=== PATIENT | female | born 2000 | race Two or more races ===

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

== ENCOUNTER 2021-05-07 13:54 | Emergency (ER) | payer OTHER ==
[~2021-05-07] VITALS: Ht 165.1 cm; Wt 75.5 kg
[2021-05-07 13:55] VITALS: BP 128/77
[2021-05-07] MEDS ORDERED: IBUPROFEN 600 MG TABLET. PO ONE (14:45)
[2021-05-07] MEDS ORDERED: CYCL-331 PO (14:59)
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
== END 2021-05-07 15:09 | disposition home or self-care (01) ==
LOC: ER 13:54
DX: M54.2 Cervicalgia (principal); R51.9 Headache, unspecified; V89.2XXA Person injured in unspecified motor-vehicle accident, traffic, initial encounter; Y93.I9 Activity, other involving external motion; Y92.89 Other specified places as the place of occurrence of the external cause; Y99.8 Other external cause status
CPT/HCPCS: 99283

== ENCOUNTER 2021-07-26 23:13 | Emergency (ER) | payer OTHER ==
[~2021-07-26] VITALS: Ht 160 cm; Wt 77.0 kg
[~2021-07-26 23:13] MED LIST: CYCL-331 PO
[2021-07-26] MEDS ORDERED: IPRATRPIUM/ALBUTEROL 0.5/2.5MG 3 ML NEBU. NEB ONE (23:45)
[2021-07-26] MEDS ORDERED: DEXAMETHASONE 4 MG TABLET PO ONE (23:45)
--- NOTE | 2021-07-26 23:51 | PHYS DOC ---
Past History Past Medical History: No Pertinent History Past Surgical History: No Surgical History Alcohol Use: Rarely Drug Use: None Adult General Chief Complaint Chief Complaint: SHORTNESS OF BREATH HPI HPI Patient is a 21-year-old female with a past medical history significant for asthma who presents with asthma exacerbation. States her asthma has been controlled for years but got a new cat a few days ago and noticed since then she has had some runny nose, itchy eyes and then started wheezing earlier today. States she has not had an exacerbation so long since she does not have any albuterol at home. Denies any recent travels, traumas, fevers, sore throat throat, pain or trouble swallowing, abdominal pain, nausea, vomiting, diarrhea. Review of Systems Review of Systems Constitutional: Denies fever or chills [] Eyes: Denies change in visual acuity, redness, or eye pain [] HENT: Denies nasal congestion or sore throat [] Respiratory: Denies cough or shortness of breath [] Cardiovascular: No additional information not addressed in HPI [] GI: Denies abdominal pain, nausea, vomiting, bloody stools or diarrhea [] : Denies dysuria or hematuria [] Musculoskeletal: Denies back pain or joint pain [] Integument: Denies rash or skin lesions [] Neurologic: Denies headache, focal weakness or sensory changes [] Endocrine: Denies polyuria or polydipsia [] All other systems were reviewed and found to be within normal limits, except as documented in this note. Current Medications Current Medications Current Medications Medications (Trade) Dose Ordered Sig/Ismael Start Time Stop Time Status Last Admin Dose Admin Albuterol/ Ipratropium (Duoneb) 3 ml 1X ONCE 07/26/21 23:45 07/26/21 23:46 Dexamethasone (Decadron) 10 mg 1X ONCE 07/26/21 23:45 07/26/21 23:46 Fentanyl Citrate (Fentanyl 2ml Vial) 25 mcg 1X ONCE 07/26/21 23:45 07/26/21 23:46 Allergies Allergies Allergies Coded Allergies Type Severity Reaction Last Updated Verified No Known Drug Allergies 05/07/21 No Physical Exam Physical Exam Constitutional: Well developed, well nourished, no acute distress, non-toxic appearance. [] HENT: Normocephalic, atraumatic, bilateral external ears normal, oropharynx moist, no oral exudates, nose normal. [] Eyes: conjunctiva normal, no discharge. [] Neck: Normal range of motion, no tenderness, supple, no stridor. [] Cardiovascular:Heart rate regular rhythm, no murmur [] Lungs & Thorax: Bilateral global, end expiratory wheeze with no rhonchi Abdomen: Bowel sounds normal, soft, no tenderness, no masses, no pulsatile claudette s. [] Skin: Warm, dry, no erythema, no rash. [] Extremities: No tenderness, ROM intact, no edema. [] Neurologic: Alert and oriented X 3, no focal deficits noted. [] Psychologic: Affect normal, judgement normal, mood normal. [] Current Patient Data Vital Signs Vital Signs Date Time Temp Pulse Resp B/P (MAP) Pulse Ox O2 Delivery O2 Flow Rate FiO2 07/26/21 23:23 98.3 87 20 141/88 98 Room Air EKG EKG [] Radiology/Procedures Radiology/Procedures [] Heart Score C/O Chest Pain: N/A Risk Factors: Risk Factors: DM, Current or recent (<one month) smoker, HTN, HLP, family history of CAD, obesity. Risk Scores: Risk Factors: DM, Current or recent (<one month) smoker, HTN, HLP, family history of CAD, obesity. Course & Med Decision Making Course & Med Decision Making Patient is a 21-year-old female who presents with asthma exacerbation. Vital signs not concerning. Physical exam noted above. Given breathing treatment, steroids and albuterol inhaler with spacer and educated on appropriate use. Discussed all findings with patient. Advised to follow-up on Wednesday with primary care physician. Gave return precautions to the ED. Patient grateful, verbalized understanding and agreed with plan of discharge. [] Dragon Disclaimer Dragon Disclaimer This electronic medical record was generated, in whole or in part, using a voice recognition dictation system. Departure Departure: Impression: Primary Impression: Asthma exacerbation Disposition: HOME / SELF CARE / HOMELESS Condition: GOOD Referrals: SELAM LESLIE DO (PCP) Patient Instructions: Asthma Attacks, Prevention, Asthma, Adult Additional Instructions: Thank you for coming into the emergency department tonight and allowing us to take care of you. Please read the attached information above to go back over some of the things we discussed. Please use your albuterol inhaler as demonstrated and as needed. Please call your primary care physician on Wednesday to update on ED visit and set up a follow-up as soon as you can to discuss asthma management. Please consider recent exposures to pets, new soaps and such as we discussed to help prevent further exacerbations. Please come back to the ED with new or concerning symptoms as discussed. MARYJANE HAMILTON MD Jul 26, 2021 23:51
[2021-07-27] MEDS ORDERED: ALBUTEROL SULFATE 8GM INHALER. INH ONE
[2021-07-27 00:28] VITALS: BP 126/68
== END 2021-07-27 01:11 | disposition home or self-care (01) ==
LOC: ER 23:13
DX: J45.901 Unspecified asthma with (acute) exacerbation (principal)
CPT/HCPCS: 81025; 94640; 96372; 99284; J8540; 94664

== ENCOUNTER → 2022-03-11 | Outpatient (CLI) | payer OTHER ==
[~2022-03-11] MED LIST changes: -CYCL-331 PO; +CYCL10TA19 PO
--- NOTE | 2022-03-11 16:27 | RAD ---
EXAMINATION: US PELVIS W/TV, 03/11/2022 1:57 PM CLINICAL INDICATION: Abnormal uterine bleeding TECHNIQUE: Grayscale, color and spectral Doppler ultrasound images of the pelvis via transabdominal a nd transvaginal approach. COMPARISON: None. FINDINGS: The uterus measures 6.7 x 3.9 x 3.2 cm. The endometrial stripe measures 3.9 mm in thickness. No myome trial mass. The right ovary measures 3.1 x 1.8 x 1.9 cm. The left ovary measures 3.9 x 2.3 x 1.8 cm. Normal ovari an blood flow bilaterally. There is a 1.3 cm dominant follicle in the right ovary. No adnexal mass or free fluid. IMPRESSION: Normal pelvic ultrasound. Electronically signed by: Flor Davey MD (03/11/2022 4:24 PM) [id number]
== END ==
LOC: US 13:49
PROVIDERS: ATTEND Nurse Practitioner Family
DX: N93.9 Abnormal uterine and vaginal bleeding, unspecified (principal)
CPT/HCPCS: 76830; 76856